=== PATIENT | male | born 1975 | race Asian ===

== ENCOUNTER 2019-05-16 22:36 | Inpatient (IN) | payer OTHER ==
[2019-05-17] MEDS ORDERED: ONDANSETRON 4 MG INJ IV (02:00)
[2019-05-17] MEDS ORDERED: DEXTROSE 50% 50 ML SYRINGE IV ×2 (02:00)
[2019-05-17] MEDS ORDERED: GLUCOSE GEL 15 GRAM TUBE BUCCAL (02:00)
[2019-05-17] MEDS ORDERED: GLUCOSE GEL 15 GRAM TUBE PO ×2 (02:00)
[2019-05-17] MEDS ORDERED: ALBUTEROL/IPRATROPIUM (NEB) 3 ML AMP HHN (02:00)
[2019-05-17] MEDS ORDERED: NACL 0.9% 3 ML SYG IV (02:00)
[2019-05-17] MEDS: ACCU-CHEK XX (02:00)
[2019-05-17] MEDS ORDERED: GLUCAGON 1 MG INJ IM (02:00)
[2019-05-17] MEDS: DEXTROSE 5%-0.45% NACL 1,000 ML IV ×3 (02:04→18:17)
[2019-05-17] MEDS: METHYLPREDNISOLONE 125 MG INJ IV (02:04)
[2019-05-17] MEDS: morphine 2 MG INJ IV ×4 (04:09→21:28)
[2019-05-17 06:11] LABS: ADD MAN DIFF? NO
[2019-05-17 06:21] LABS: WHITE BLOOD COUNT 6.4 10^3/ul (4.8-10.8)
[2019-05-17 06:21] LABS: ABNORMAL IP MESSAGE 1; BASOPHILS % 0.3 % (0.0-2.0); EOSINOPHILS % 0.2 % (0.0-7.0); HEMATOCRIT 33.7 % (42.0-52.0); HEMOGLOBIN 10.6 g/dl (14.0-18.0); LYMPHOCYTES # 0.5 10^3/ul (0.8-2.9); LYMPHOCYTES % 8.1 % (15.0-51.0); MEAN CORPUSCULAR HEMOGLOBIN 23.2 pg (29.0-33.0); MEAN CORPUSCULAR HGB CONC 31.5 g/dl (32.0-37.0); MEAN CORPUSCULAR VOLUME 73.7 fl (82.0-101.0); MEAN PLATELET VOLUME 10.1 fl (7.4-10.4); MONOCYTE # 0.2 10^3/ul (0.3-0.9); MONOCYTES % 2.3 % (0.0-11.0); NEUTROPHIL # 5.7 10^3/ul (1.6-7.5); NEUTROPHILS % 88.6 % (39.0-77.0); PLATELET COUNT 214 10^3/UL (140-415); POSITIVE DIFF @See below; RED BLOOD COUNT 4.57 10^6/ul (4.70-6.10); RED CELL DISTRIBUTION WIDTH 20.5 % (11.5-14.5)
[2019-05-17] MEDS: PANTOPRAZOLE 40 MG INJ IV ×2 (06:30→18:09)
[2019-05-17 06:49] LABS: ALANINE AMINOTRANSFERASE 278 IU/L (13-69); ALBUMIN 3.2 g/dl (3.3-4.9); ALBUMIN/GLOBULIN RATIO 0.91; ALKALINE PHOSPHATASE 227 IU/L (42-121); ANION GAP 9 (5-13); ASPARTATE AMINO TRANSFERASE 322 IU/L (15-46); BILIRUBIN,INDIRECT 1.3 mg/dl (0-1.1); BILIRUBIN,TOTAL 4.2 mg/dl (0.2-1.3); BLOOD UREA NITROGEN 12 mg/dl (7-20); CALCIUM 7.8 mg/dl (8.4-10.2); CARBON DIOXIDE 29 mmol/L (21-31); CHLORIDE 98 mmol/L (97-110); CREATININE 1.11 mg/dl (0.61-1.24); Estimated GFR > 60 mL/min (>60); GLUCOSE 187 mg/dl (70-220); MAGNESIUM 1.2 mg/dl (1.7-2.5); PHOSPHORUS 1.8 mg/dl (2.5-4.9); POTASSIUM 3.2 mmol/L (3.5-5.1); SODIUM 136 mmol/L (135-144); TOTAL PROTEIN 6.7 g/dl (6.1-8.1)
[2019-05-17 06:52] LABS: HEMOGLOBIN A1C 6.8 % (0-5.9)
[2019-05-17] MEDS: INSULIN ASPART [NOVOLOG] 3 ML PEN SC ×4 (08:27→21:00)
[2019-05-17 09:36] LABS: HEPATITIS B SURFACE ANTIGEN NEGATIVE (NEGATIVE)
[2019-05-17 09:53] LABS: HEPATITIS C VIRAL ANTIBODY NEGATIVE (NEGATIVE)
[2019-05-17] MEDS: PIPER-TAZO 3.375 GM IV (PMX) 100 ML IVPB ×3 (10:34→21:28)
[2019-05-17 11:27] LABS: HEPATITIS B SURFACE ANTIBODY INDETERMINATE (NEGATIVE)
[2019-05-17] MEDS: SOD CHLORIDE 0.9% 100 ML (14:52)
[2019-05-17] MEDS: IODIXANOL LOCM 100 ML BTL (14:53)
[2019-05-17] MEDS: POTASSIUM PHOSPHATE 20 MEQ in SOD CHLORIDE 0.9% 250 ML IVPB (16:36)
[2019-05-17] MEDS: MAGNESIUM SULFATE 4 GM/100 ML 100 ML IVPB (23:52)
[2019-05-18] MEDS: ACCU-CHEK XX (01:38)
[2019-05-18] MEDS: DEXTROSE 5%-0.45% NACL 1,000 ML IV ×3 (01:39→13:51)
[2019-05-18] MEDS: PIPER-TAZO 3.375 GM IV (PMX) 100 ML IVPB ×6 (02:33→23:33)
[2019-05-18] MEDS: morphine 2 MG INJ IV ×2 (02:38→16:16)
[2019-05-18] MEDS: PANTOPRAZOLE 40 MG INJ IV ×2 (06:05→18:19)
[2019-05-18 06:56] LABS: ADD MAN DIFF? NO
[2019-05-18 07:00] LABS: BASOPHILS % 0.1 % (0.0-2.0); HEMATOCRIT 31.4 % (42.0-52.0); HEMOGLOBIN 9.8 g/dl (14.0-18.0); LYMPHOCYTES # 1.2 10^3/ul (0.8-2.9); LYMPHOCYTES % 12.9 % (15.0-51.0); MEAN CORPUSCULAR HEMOGLOBIN 23.4 pg (29.0-33.0); MEAN CORPUSCULAR HGB CONC 31.2 g/dl (32.0-37.0); MEAN CORPUSCULAR VOLUME 74.9 fl (82.0-101.0); MEAN PLATELET VOLUME 10.1 fl (7.4-10.4); MONOCYTE # 0.6 10^3/ul (0.3-0.9); MONOCYTES % 6.5 % (0.0-11.0); NEUTROPHIL # 7.5 10^3/ul (1.6-7.5); NEUTROPHILS % 79.9 % (39.0-77.0); PLATELET COUNT 194 10^3/UL (140-415); RED BLOOD COUNT 4.19 10^6/ul (4.70-6.10)
[2019-05-18 07:00] LABS: WHITE BLOOD COUNT 9.3 10^3/ul (4.8-10.8)
[2019-05-18 07:10] LABS: IRON 110 ug/dl (35-150)
[2019-05-18 07:11] LABS: ANION GAP 9 (5-13); BLOOD UREA NITROGEN 7 mg/dl (7-20); CALCIUM 8.1 mg/dl (8.4-10.2); CARBON DIOXIDE 29 mmol/L (21-31); CHLORIDE 102 mmol/L (97-110); CREATININE 0.95 mg/dl (0.61-1.24); Estimated GFR > 60 mL/min (>60); GLUCOSE 115 mg/dl (70-220); MAGNESIUM 1.9 mg/dl (1.7-2.5); PHOSPHORUS 3.7 mg/dl (2.5-4.9); POTASSIUM 3.3 mmol/L (3.5-5.1); SODIUM 140 mmol/L (135-144)
[2019-05-18 07:19] LABS: % IRON SATURATION 33 % SAT (22-52); TOTAL IRON BINDING CAPACITY 338 ug/dl (241-421)
[2019-05-18 07:23] LABS: CHOLESTEROL 249 mg/dl (100-200)
[2019-05-18 07:23] LABS: CHOL/HDL RATIO 15.5 RATIO; HDL CHOLESTEROL 16 mg/dl (27-67); LDL CHOLESTEROL,CALCULATED 155 mg/dl; TRIGLYCERIDES 391 mg/dl (0-149)
[2019-05-18 08:24] LABS: OCCULT BLOOD STOOL POSITIVE (NEGATIVE)
[2019-05-18] MEDS: INSULIN ASPART [NOVOLOG] 3 ML PEN SC ×5 (09:45→23:41)
[2019-05-18] MEDS ORDERED: BISACODYL (EC) 5 MG TAB PO (11:30)
[2019-05-18 13:27] LABS: INR 1.13; PROTIME 14.6 Sec (11.9-14.9); PT RATIO 1.1
[2019-05-18] MEDS: BISACODYL (EC) 5 MG TAB PO (14:00)
[2019-05-18 16:48] LABS: ALANINE AMINOTRANSFERASE 199 IU/L (13-69); ALKALINE PHOSPHATASE 264 IU/L (42-121); ASPARTATE AMINO TRANSFERASE 182 IU/L (15-46); BILIRUBIN,INDIRECT 1.3 mg/dl (0-1.1); BILIRUBIN,TOTAL 3.6 mg/dl (0.2-1.3); TOTAL PROTEIN 6.5 g/dl (6.1-8.1)
[2019-05-18] MEDS ORDERED: MAGNESIUM CITRATE 300 ML BTL PO (17:30)
[2019-05-18] MEDS: POTASSIUM CHLORIDE 100 ML IVPB (17:58)
[2019-05-18] MEDS: POLYETHYLENE GLYCOL 3350 119 GM POWDER PO ×2 (18:25→18:36)
[2019-05-18] MEDS ORDERED: POLYETHYLENE GLYCOL 3350 119 GM POWDER PO (18:30)
[2019-05-18] MEDS: MAGNESIUM CITRATE 300 ML BTL PO (18:45)
[2019-05-18] MEDS: POTASSIUM CHLORIDE (SR) 20 MEQ TAB PO (23:38)
[2019-05-19] MEDS: ACCU-CHEK XX (01:05)
[2019-05-19] MEDS: DEXTROSE 5%-0.45% NACL 1,000 ML IV ×2 (02:33→11:41)
[2019-05-19] MEDS: PIPER-TAZO 3.375 GM IV (PMX) 100 ML IVPB ×4 (02:33→20:48)
[2019-05-19] MEDS: INSULIN ASPART [NOVOLOG] 3 ML PEN SC ×5 (04:13→20:48)
[2019-05-19] MEDS: PANTOPRAZOLE 40 MG INJ IV ×2 (05:18→18:08)
[2019-05-19] MEDS: BISACODYL (EC) 5 MG TAB PO (05:19)
[2019-05-19] MEDS: POLYETHYLENE GLYCOL 3350 119 GM POWDER PO (05:27)
[2019-05-19 05:51] LABS: ADD MAN DIFF? NO
[2019-05-19 05:54] LABS: ABNORMAL IP MESSAGE 1; BASOPHILS % 0.4 % (0.0-2.0); EOSINOPHILS % 0.4 % (0.0-7.0); HEMATOCRIT 34.5 % (42.0-52.0); HEMOGLOBIN 10.3 g/dl (14.0-18.0); LYMPHOCYTES # 1.9 10^3/ul (0.8-2.9); LYMPHOCYTES % 25.4 % (15.0-51.0); MEAN CORPUSCULAR HEMOGLOBIN 23.2 pg (29.0-33.0); MEAN CORPUSCULAR HGB CONC 29.9 g/dl (32.0-37.0); MEAN CORPUSCULAR VOLUME 77.7 fl (82.0-101.0); MEAN PLATELET VOLUME 10.1 fl (7.4-10.4); MONOCYTE # 0.5 10^3/ul (0.3-0.9); MONOCYTES % 6.7 % (0.0-11.0); NEUTROPHILS % 65.9 % (39.0-77.0); PLATELET COUNT 191 10^3/UL (140-415); POSITIVE DIFF @See below; RED BLOOD COUNT 4.44 10^6/ul (4.70-6.10); RED CELL DISTRIBUTION WIDTH 22.4 % (11.5-14.5)
[2019-05-19 05:54] LABS: WHITE BLOOD COUNT 7.6 10^3/ul (4.8-10.8)
[2019-05-19] MEDS ORDERED: POLYETHYLENE GLYCOL 3350 119 GM POWDER PO (06:00)
[2019-05-19 06:16] LABS: ANION GAP 8 (5-13); BLOOD UREA NITROGEN 5 mg/dl (7-20); CALCIUM 8.4 mg/dl (8.4-10.2); CARBON DIOXIDE 28 mmol/L (21-31); CHLORIDE 107 mmol/L (97-110); CREATININE 1.02 mg/dl (0.61-1.24); Estimated GFR > 60 mL/min (>60); GLUCOSE 85 mg/dl (70-220); MAGNESIUM 1.6 mg/dl (1.7-2.5); POTASSIUM 3.3 mmol/L (3.5-5.1); SODIUM 143 mmol/L (135-144)
[2019-05-19 07:07] LABS: C-REACTIVE PROTEIN 1.4 mg/dl (0.0-0.9)
[2019-05-19 07:35] LABS: ERYTHROCYTE SEDIMENTATION RATE 19 mm/Hr (0-15)
[2019-05-19 07:59] LABS: CARCINOEMBRYONIC ANTIGEN 2.5 ng/ml (0.0-5.0)
[2019-05-19] MEDS ORDERED: BISACODYL (EC) 5 MG TAB PO (08:00)
[2019-05-19] MEDS: LIDOCAINE 2% (SDV) 5 ML INJ (16:17)
[2019-05-19] MEDS: FENTAnyl 50 MCG/ML VIAL (16:17)
[2019-05-19] MEDS: PROPOFOL 40 ML (16:17)
[2019-05-19] MEDS: MAGNESIUM SULFATE 2 GM/50 ML 50 ML IVPB (18:02)
[2019-05-19] MEDS: POTASSIUM CHLORIDE (SR) 20 MEQ TAB PO (18:02)
[2019-05-19] MEDS: morphine 2 MG INJ IV (20:58)
[2019-05-20] MEDS: ACCU-CHEK XX (02:00)
[2019-05-20] MEDS: PIPER-TAZO 3.375 GM IV (PMX) 100 ML IVPB ×2 (04:02→08:13)
[2019-05-20 05:44] LABS: ADD MAN DIFF? NO
[2019-05-20 05:46] LABS: ABNORMAL IP MESSAGE 1; BASOPHILS % 0.7 % (0.0-2.0); EOSINOPHILS # 0.1 10^3/ul (0.0-0.5); EOSINOPHILS % 1.7 % (0.0-7.0); HEMATOCRIT 34.4 % (42.0-52.0); HEMOGLOBIN 10.3 g/dl (14.0-18.0); LYMPHOCYTES # 1.8 10^3/ul (0.8-2.9); LYMPHOCYTES % 30.4 % (15.0-51.0); MEAN CORPUSCULAR HEMOGLOBIN 23.3 pg (29.0-33.0); MEAN CORPUSCULAR HGB CONC 29.9 g/dl (32.0-37.0); MEAN CORPUSCULAR VOLUME 77.8 fl (82.0-101.0); MEAN PLATELET VOLUME 10.5 fl (7.4-10.4); MONOCYTE # 0.5 10^3/ul (0.3-0.9); MONOCYTES % 8.9 % (0.0-11.0); NEUTROPHIL # 3.4 10^3/ul (1.6-7.5); NEUTROPHILS % 56.5 % (39.0-77.0); NUCLEATED RED BLOOD CELLS% 0.3 /100WBC (0.0-0.0); PLATELET COUNT 168 10^3/UL (140-415); POSITIVE DIFF @See below; RED BLOOD COUNT 4.42 10^6/ul (4.70-6.10)
[2019-05-20 06:06] LABS: ANION GAP 7 (5-13); BLOOD UREA NITROGEN 5 mg/dl (7-20); CARBON DIOXIDE 28 mmol/L (21-31); CHLORIDE 106 mmol/L (97-110); CREATININE 0.95 mg/dl (0.61-1.24); Estimated GFR > 60 mL/min (>60); GLUCOSE 83 mg/dl (70-220); POTASSIUM 3.6 mmol/L (3.5-5.1); SODIUM 141 mmol/L (135-144)
[2019-05-20 06:08] LABS: CALCIUM 8.4 mg/dl (8.4-10.2)
[2019-05-20 06:09] LABS: ALANINE AMINOTRANSFERASE 134 IU/L (13-69); ALBUMIN 3.2 g/dl (3.3-4.9); ALKALINE PHOSPHATASE 259 IU/L (42-121); ASPARTATE AMINO TRANSFERASE 103 IU/L (15-46); BILIRUBIN,INDIRECT 1.2 mg/dl (0-1.1); BILIRUBIN,TOTAL 3.7 mg/dl (0.2-1.3); TOTAL PROTEIN 6.7 g/dl (6.1-8.1)
[2019-05-20] MEDS: PANTOPRAZOLE 40 MG INJ IV (06:16)
[2019-05-20] MEDS: INSULIN ASPART [NOVOLOG] 3 ML PEN SC ×2 (07:00→11:30)
== END 2019-05-20 17:15 | disposition home or self-care (01) | DRG 378 ==
LOC: 2NE 22:36
PROVIDERS: Internal Medicine
PROC: 0DB68ZX Excision of Stomach, Via Natural or Artificial Opening Endoscopic, Diagnostic (ICD-10-PCS; principal; 2019-05-19 16:02)
PROC: 0DBN8ZX Excision of Sigmoid Colon, Via Natural or Artificial Opening Endoscopic, Diagnostic (ICD-10-PCS; 2019-05-19 16:02)
DX: K62.5 Hemorrhage of anus and rectum (principal); K51.90 Ulcerative colitis, unspecified, without complications; K92.1 Melena; E11.8 Type 2 diabetes mellitus with unspecified complications; F10.10 Alcohol abuse, uncomplicated; Y90.9 Presence of alcohol in blood, level not specified; R59.1 Generalized enlarged lymph nodes; I10 Essential (primary) hypertension; E78.5 Hyperlipidemia, unspecified; D50.9 Iron deficiency anemia, unspecified; K70.10 Alcoholic hepatitis without ascites; K76.0 Fatty (change of) liver, not elsewhere classified; E83.39 Other disorders of phosphorus metabolism; E83.42 Hypomagnesemia; E87.6 Hypokalemia; E66.9 Obesity, unspecified; Z68.38 Body mass index [BMI] 38.0-38.9, adult; K29.70 Gastritis, unspecified, without bleeding; K63.5 Polyp of colon; K64.8 Other hemorrhoids
CPT/HCPCS: 74177; 76705; 80048; 80053; 80061; 80076; 82270; 82378; 82962; 83036; 83540; 83735; 84100; 85025; 85610; 85651; 86140; 86706; 86803; 87045; 87075; 87340; 88305; 88312; 94660